=== PATIENT | female | born 2000 | race Two or more races ===

== ENCOUNTER 2024-08-18 09:26 | Outpatient (AMB) | payer MEDICAID, SELFPAY ==
[2024-08-18 09:34] VITALS: BP 127/77; PULSE 111; RESP 20; TEMP 36.3; O2SAT 98; BMI 32.1
--- NOTE | 2024-08-18 09:34 | OBCLNT_ITS ---
Vital Signs 08/18/24 09:34 Height 1.55 m Height Method Stated Weight 77.111 kg Weight Measurement Method Standing Scale BMI 32.1 BP 127/77 Blood Pressure Source Automatic Cuff Blood Pressure Location Right Upper Arm Position Sitting Respiration 20 Pulse 111 H Pulse Source Monitor Temp 97.4 F Temp Source Temporal Artery Scan Pulse Oximetry (%) 98 Oxygen Delivery Method Room Air Allergies/Home Meds Allergies & Medications Allergies NKA* Allergy (Uncoded 08/18/24 09:35) Medication Reconciliation vits no.126-ferrous fum 28 mg iron-folic acid 800 mcg tablet (Classic ) tab PO 08/18/24 [History Confirmed 08/18/24] Intake Visit Data Collection New Patient or Established: New Patient (never been to [facility]) Reason for Visit:: ob intaial Do You Feel Safe at Home: Yes Authorities Contacted: N/A PCP or OBGYN visit in last 3 months: No Are you currently on any form of Control: No Last menstrual period: 02/13/24 Pain Present Currently: No Smoking Status Smoking Status: Never smoker Questionnaires Covid-19 Vaccine Questionnaire Has patient been vacinated for Covid-19 Have you been vacinated for Covid-19: No PHQ-9 PHQ-2 Over the last 2 weeks, how often have you been bothered by any of the following problems? 1. Little interest or pleasure in doing things: not at all 2. Feeling down, depressed, or hopeless: not at all Total score: 0 Depression screen completed yes Social History Living Situation History Marital Status: Single Lives With: Significant Other Housing: Apartment Tobacco History Smoking Status: Never smoker Alcohol History Alcohol Intake: Never Domestic Abuse History Do You Feel Safe at Home: Yes Past Medical History Past Medical History Have you ever been diagnosed with any of the following: History of Present Illness HPI Narrative 24-year-old 1 para 0 for first visit to the [facility]. Last period February 13, 2024. This gives due date November 19, 2024. Patient has her dates. She is a transfer from [facility]. First visit was at 9 weeks. Patient comes with her records. Reports movement. Denies any complaints of labor. has been uneventful. Her last visit with maternal- medicine was June. Fetus was measuring in the 60th percentile. Normal anatomy. Patient is B+, antibody screen negative, RPR nonreactive, rubella immune, hepatitis B negative, HIV negative, hep C negative, GC and Chlamydia were negative. Positive U tox for THC. Patient denies history of chronic illnesses. Denies history of surgeries. No labor complaints. No discomforts of . Reports movement. OB Initial Visit OB Flowsheet OB Flowsheet Initial Weight: Not Recorded Date -?-?-?-?-?-?-?-?-?-?-?-?- EGA Weight Edema CTX Effacement BP Fundal ht Pres Dilation Effacement Station Visit Note Alb Glu FHR Mov 08/18/24 -?-?-?-?-?-?-?-?-?-?-?-?- 26w 5d 77.111 kg absent absent 127/77 27 unknown 24-year-old 1 para 0 for first OB appointment at [facility]. No complaints of labor. Reports movement. Labs reviewed with patient. Order third trimester labs. Follow-up OB sono for growth at 32 weeks. Discussed labor. Continue vitamins and iron. Increase fluids. I reviewed diet with patient and regular activity. RTC 3 week 136 ac tive Menstrual History Menstrual reliability: unknown Flow: heavy Menstrual regularity: irregular Monthly: No Age at menarche: 15 On control pills at conception: No Date of positive home test: 04/14/24 Associated symptoms (LMP): Reports amenorrhea OB History : 1 Para: 0 Hx # Pregnancies: 0 Hx Total # of Abortions (Spontaneous & Elective): 0 # of Living Children: 0 Infection History & Risk Evaluation History of STDs: none HIV risk evaluation: low risk Hepatitis B risk evaluation: low risk Patient or partner has history of Genital Herpes: No Varicella/chicken pox status: immunized Genetic Screening & History Genetic Screening/Teratology Counseling - Includes patient, baby's father, or anyone in either family with: 1. Patient's age 35 years or older as of estimated date of delivery: No 2. Thalassemia (Bahamian, Amharic, Mediterranean, or Background); MCV less than 80: No 3. Neural Tube Defect (Meningomyelocele, Spina Bifida, or Anencephaly): No 4. Congenital Heart Defect: No 5. Down Syndrome: No 6. Elder-Sachs (Ashkenazi Muslim, Cajun, Beninese Sri Lankan): No 7. Dee Dee Disease (Ashkenazi Muslim): No 8. Familial Dysautonomia (Ashkenazi Muslim): No 9. Sickle Cell Disease or Trait (): No 10. Hemophilia or other blood disorders: No 11. Muscular Dystrophy: No 12. Cystic Fibrosis: No 13. [place]'s Chorea: No 14. Mental Retardation/Autism: No 15. Other inherited genetic or chromosomal disorder: No 16. Maternal Metabolic Disorder (EG,TYPE 1 Diabetes, PKU): No 17. Patient or baby's father had a child with defects not listed above: No 18. Recurrent loss or a stillbirth: No 19. Medications (including supplements, vitamins, herbs or otc drugs)/illicit/recreational drugs/alcohol since last menstrual period: No 20. Any other: No Infection History 1. Live with someone with TB or exposed to TB: No 2. Rash or viral illness since last menstrual period: No 3. Hepatitis B,C: No Other (see comments) Source: [employer] Review of Systems Review of Systems Systems Reviewed: All systems reviewed, normal except as documented Genitourinary Genitourinary: Reports amenorrhea Exam Narrative Physical exam: fH: 27, fht:131 General Limitations: no limitations General Appearance: alert, in no apparent distress, comfortable, cooperative, healthy appearing, well developed and well groomed Chest Chest inspection: Present normal inspection and symmetric chest wall rise Resp Respiratory exam: Present normal lung sounds bilaterally Card Cardiovascular exam: Present regular rate, normal rhythm and normal heart sounds Abdominal Abdominal exam: Present soft and normal bowel sounds Psych Psychiatric exam: Present normal affect and normal mood Assessment & Plan Diagnosis / Problem List (1) Encounter for supervision of normal first , second trimester: Status: Acute Plan Continue vitamins. Order third trimester labs. Follow-up growth sono at 32 weeks. Discussed labor precautions with patient. Increase fluids and rest. Discussed walking 40 minutes a day. Decrease carbohydrates in diet. Increase proteins. Return in 3 weeks for OB check Additional Plan Follow Up: 3 Weeks (rtc 3 week OBC) Office Procedures OB Clinic LOC & Office Proc's Nursing/Assessment Patient Status: Initial/New Patient OB Clinic Nursing Assessment: Medication Reconciliation, Update PMH in EMR and Vital Signs OB Clinic Coordination of Care: Complex Care and Chronic Disease 1-5, Education Complex Pt/Fam and Staff clarify orders New Patient Charge New Patient Point Assignment: [id number] New Patient Point Charge: HUMAN RESOURCES MANAGER Level 3 ([id number])
== END 2024-08-18 09:56 | disposition home or self-care (01) ==
LOC: HODSOBC 09:26
PROVIDERS: PCP Advanced Practice Midwife; Referring Provider Advanced Practice Midwife; Supervising Provider Advanced Practice Midwife; Visit Provider Advanced Practice Midwife
DX: Z34.02 Encounter for supervision of normal first pregnancy, second trimester (principal); Z3A.26 26 weeks gestation of pregnancy
CPT/HCPCS: 99203; G0463

== ENCOUNTER 2024-09-21 09:04 | Outpatient (AMB) | payer MEDICAID, SELFPAY ==
[2024-09-21 09:25] VITALS: BP 118/75; PULSE 22; RESP 104; TEMP 36.1; O2SAT 98; BMI 32.3
--- NOTE | 2024-09-21 09:25 | AMB.OBVISIT ---
Vital Signs 09/21/24 09:25 Height 1.55 m Height Method Stated Weight 77.734 kg Weight Measurement Method Standing Scale BMI 32.3 BP 118/75 Blood Pressure Source Automatic Cuff Blood Pressure Location Left Upper Arm Position Sitting Respiration 104 H Pulse 22 L Pulse Source Monitor Temp 97 F Temp Source Oral Pulse Oximetry (%) 98 Oxygen Delivery Method Room Air Allergies/Home Meds Allergies & Medications Allergies NKA* Allergy (Uncoded 09/21/24 09:26) Medication Reconciliation vits no.126-ferrous fum 28 mg iron-folic acid 800 mcg tablet (Classic ) tab PO 08/18/24 [History Confirmed 09/21/24] vitamin-ferrous fumarate 28 mg iron-folic acid 800 mcg tablet ( Vitamins with Minerals) 1 tab PO QDAY 30 days #30 tabs 09/21/24 [Rx] Intake Visit Data Collection New Patient or Established: Established Patient (seen at [facility] within 3 years) Reason for Visit:: CARE Pond Worker Required: No Do You Feel Safe at Home: Yes Authorities Contacted: N/A PCP or OBGYN visit in last 3 months: Yes Hx Now: Yes Are you currently on any form of Control: No Pain Present Currently: No Pain Scale Used: Doyle-Payne/Numerical Pain scale:: 0 Smoking Status Smoking Status: Never smoker Questionnaires Covid-19 Vaccine Questionnaire Has patient been vacinated for Covid-19 Have you been vacinated for Covid-19: Yes PHQ-9 PHQ-2 Over the last 2 weeks, how often have you been bothered by any of the following problems? 1. Little interest or pleasure in doing things: not at all 2. Feeling down, depressed, or hopeless: not at all Total score: 0 PHQ-9 3. Trouble falling or staying asleep, or sleeping too much: Not at all 4. Feeling tired or having little energy: Not at all 5. Poor appetite or overeating: Not at all 6. Feeling bad about yourself - or that you are a failure or have let yourself or your family down: Not at all 7. Trouble concentrating on things, such as reading the newspaper or watching television: Not at all 8. Moving or speaking so slowly that other people could have noticed? - Or the opposite - being so fidgety or restless that you have been moving around a lot more than usual: not at all 9. Thoughts that you would be better off or of hurting yourself in some way: Not at all Total score: 0 Source: Developed by Drs. Hardik Serrano, Ramila Hernandez, Hoang Palmer and colleagues, with an educational aaron from [employer]. Depression screen completed yes Social History Living Situation History Lives With: Significant Other Housing: Apartment Tobacco History Smoking Status: Never smoker Alcohol History Alcohol Intake: Never Domestic Abuse History Do You Feel Safe at Home: Yes Care OB Visit Log OB Flowsheet Initial Weight: Not Recorded Date <del>?</del> EGA Weight BP Alb Glu CTX Pres Fundal ht FHR Mov Dilation Station Effacement Hx Notes Visit Note 08/18/24 <del>?</del> 26w 5d 77.111 kg 127/77 absent unknown 27 136 active 24-year-old 1 para 0 for first OB appointment at [facility] OB clinic. No complaints of labor. Reports movement. Labs reviewed with patient. Order third trimester labs. Follow-up OB sono for growth at 32 weeks. Discussed labor. Continue vitamins and iron. Increase fluids. I reviewed diet with patient and regular activity. RTC 3 week 09/21/24 <del>?</del> 31w 4d 77.734 kg 118/75 absent cephalic 30 147 active fetus active, no c/o vag bleeding,leaking or PTL signs TDAP today, refill pNV, discuss increase protien, small meals, increase fluid, PTL precaution, rtc 2 week TONYA Calculator Estimated Delivery Date Method Current WG Current Estimate 11/19/24 Ultrasound #1 31w 4d Other Estimates 11/19/24 LMP (Certain) 31w 4d Office Procedures OB Clinic LOC & Office Proc's Nursing/Assessment Patient Status: Established Patient OB Clinic Nursing Assessment: Medication Reconciliation, Update PMH in EMR and Vital Signs OB Clinic Coordination of Care: Complex Care and Chronic Disease 1-5, Consent,records obtained, informed consent, Education Simp Pt/Fam, Lab and Imaging orders, Results/Orders obtained and Staff clarify orders Special Needs: Heart tones Established Patient Charge Established Patient Point Assignment: 135 Injection/Vaccine Admin Admin 1st Vaccine: Yes Immunizations diphth,pertus(acell),tetanus 2.5 Lf unit-8 mcg-5 Lf/0.5mL IM syringe Performing Provider: Catarina Hobbs CNM Performing Location: [facility] ENGINEERING AND DEVELOPMENT DIRECTOR Clinic Administered by: Radha Yung MA on 09/21/24 16:17 Dose Route Admin Location Dispensed Lot Number Expiration Date [facility] Sales Order Processor 0.5 mL IM Right Deltoid 0.5 mL [id number] 10/09/26 [id number] [employer] VIS Given Date VIS Provided VIS Publication Date 09/21/24 Single Vaccine 24 Eligibility Eligibility Date Funding Source [facility] Assessment & Plan Diagnosis / Problem List (1) Encounter for care in third trimester of first : Status: Acute Plan refill PNV, TDAP today, discuss PTL precaution, comfort measure for nausea and feeling dizzy. increase fluid. RTC 2 week Additional Plan Follow Up: 2 Weeks (obc)
== END 2024-09-21 09:59 | disposition home or self-care (01) ==
LOC: HODSOBC 09:04
PROVIDERS: PCP Advanced Practice Midwife; Referring Provider Advanced Practice Midwife; Supervising Provider Advanced Practice Midwife; Visit Provider Advanced Practice Midwife
DX: Z34.03 Encounter for supervision of normal first pregnancy, third trimester (principal); Z3A.31 31 weeks gestation of pregnancy; Z23 Encounter for immunization
CPT/HCPCS: 90471; 90715; 99213; G0463

== ENCOUNTER 2024-10-06 10:35 | Outpatient (AMB) | payer MEDICAID, SELFPAY ==
--- NOTE | 2024-10-06 10:50 | OBCLNT_ITS ---
Vital Signs 10/06/24 10:56 Height 1.55 m Height Method Stated Weight 78.471 kg Weight Measurement Method Standing Scale BMI 32.6 BP 107/69 Blood Pressure Source Automatic Cuff Blood Pressure Location Right Upper Arm Position Sitting Respiration 17 Pulse 96 Pulse Source Monitor Temp 97.6 F Temp Source Temporal Artery Scan Pulse Oximetry (%) 98 Oxygen Delivery Method Room Air Allergies/Home Meds Allergies & Medications Allergies NKA* Allergy (Uncoded 10/06/24 10:57) Medication Reconciliation vits no.126-ferrous fum 28 mg iron-folic acid 800 mcg tablet (Classic ) tab PO 08/18/24 [History Confirmed 10/06/24] vitamin-ferrous fumarate 28 mg iron-folic acid 800 mcg tablet ( Vitamins with Minerals) 1 tab PO QDAY 30 days #30 tabs 09/21/24 [Rx Confirmed 10/06/24] Intake Visit Data Collection New Patient or Established: Established Patient (seen at [facility] within 3 years) Reason for Visit:: OBC Seen by Clinical Staff ONLY (RN/MA): No Occupational Health Nurse Supervisor Required: No Do You Feel Safe at Home: Yes Authorities Contacted: N/A PCP or OBGYN visit in last 3 months: Yes Date of Last PCP or OBGYN visit: 09/21/24 Hx Now: Yes Are you currently on any form of Control: No Pain Present Currently: No Pain Scale Used: Doyle-Payne/Numerical Pain scale:: 0 Smoking Status Smoking Status: Never smoker Questionnaires Covid-19 Vaccine Questionnaire Has patient been vacinated for Covid-19 Have you been vacinated for Covid-19: Yes PHQ-9 PHQ-2 Over the last 2 weeks, how often have you been bothered by any of the following problems? 1. Little interest or pleasure in doing things: not at all 2. Feeling down, depressed, or hopeless: not at all Total score: 0 PHQ-9 3. Trouble falling or staying asleep, or sleeping too much: Not at all 4. Feeling tired or having little energy: Not at all 5. Poor appetite or overeating: Not at all 6. Feeling bad about yourself - or that you are a failure or have let yourself or your family down: Not at all 7. Trouble concentrating on things, such as reading the newspaper or watching television: Not at all 8. Moving or speaking so slowly that other people could have noticed? - Or the opposite - being so fidgety or restless that you have been moving around a lot more than usual: not at all 9. Thoughts that you would be better off or of hurting yourself in some way: Not at all Total score: 0 If you checked off any problems, how difficult have these problems made it for you to do your work, take care of things at home, or get along with other people?: not difficult at all Source: Developed by Drs. Hardik Serrano, Ramila Hernandez, Hoang Palmer and colleagues, with an educational aaron from [employer]. Depression screen completed yes Social History Living Situation History Lives With: Significant Other Housing: Apartment Tobacco History Smoking Status: Never smoker Alcohol History Alcohol Intake: Never Domestic Abuse History Do You Feel Safe at Home: Yes Care OB Visit Log OB Flowsheet Initial Weight: Not Recorded Date -?-?-?-?-?-?-?-?-?-?-?-?- EGA Weight BP Alb Glu CTX Pres Fundal ht FHR Mov Dilation Station Effacement Hx Notes Visit Note 08/18/24 -?-?-?-?-?-?-?-?-?-?-?-?- 26w 5d 77.111 kg 127/77 absent unknown 27 136 active 24-year-old 1 para 0 for first OB appointment at [facility] OB clinic. No complaints of labor. Reports movement. Labs reviewed with patient. Order third trimester labs. Follow-up OB sono for growth at 32 weeks. Discussed labor. Continue vitamins and iron. Increase flui ds. I reviewed diet with patient and regular activity. RTC 3 week 09/21/24 -?-?-?-?-?-?-?-?-?-?-?-?- 31w 4d 77.734 kg 118/75 absent cephalic 30 147 active fetus active, no c/o vag bleeding,leaking or PTL signs TDAP today, refill pNV, discuss increase protien, small meals, increase fluid, PTL precaution, rtc 2 week 10/06/24 -?-?-?-?-?-?-?-?-?-?-?-?- 33w 5d 78.471 kg 107/69 absent cephalic 33 145 active fetus active per pt. denies PTL complaints, no PIH complaints discuss ptl precaution and FKC. continue PNV, hydrate. GBS nv TONYA Calculator Estimated Delivery Date Method Current WG Current Estimate 11/19/24 LMP (Certain) 33w 5d Other Estimates 11/19/24 Ultrasound #1 33w 5d 11/19/24 Ultrasound #2 33w 5d Office Procedures OB Clinic LOC & Office Proc's Nursing/Assessment Patient Status: Established Patient OB Clinic Nursing Assessment: Medication Reconciliation, Update PMH in EMR and Vital Signs OB Clinic Coordination of Care: Complex Care and Chronic Disease 1-5, Consent,records obtained, informed consent and Staff clarify orders Special Needs: Heart tones Established Patient Charge Established Patient Point Assignment: 100 Established Patient Point Charge: EP Level 3 (80-115) Assessment & Plan Diagnosis / Problem List (1) Encounter for care in third trimester of first : Status: Acute Plan discuss ptl precaution, fkc bid, increase fluid. discuss danger s/s. rtc 2 week OBC Additional Plan Follow Up: 2 Weeks (obc)
[2024-10-06 10:56] VITALS: BP 107/69; PULSE 96; RESP 17; TEMP 36.4; O2SAT 98; BMI 32.6
== END 2024-10-06 11:18 | disposition home or self-care (01) ==
LOC: HODSOBC 10:35
PROVIDERS: Supervising Provider Advanced Practice Midwife; Visit Provider Advanced Practice Midwife
DX: Z34.03 Encounter for supervision of normal first pregnancy, third trimester (principal); Z3A.33 33 weeks gestation of pregnancy
CPT/HCPCS: 99213; G0463

== ENCOUNTER 2024-10-11 19:17 | Observation (INO) | payer MEDICAID, SELFPAY ==
[2024-10-11] VITALS (28 sets, daily range): BP systolic 127; BP diastolic 60; PULSE 92–120; RESP 16–99; TEMP 37; O2SAT 98–100; BMI 32.8
[2024-10-11 20:45] LABS: Collection Type, Urine Clean Catch
[2024-10-11 20:54] LABS: Bilirubin,Urine Negative (Negative); Blood,Urine Negative (Negative); Clarity,Urine Clear (Clear/Hazy); Color,Urine Yellow (Lt Yel-Yel); Glucose, Urine Negative (Negative); Ketones,Urine Trace (Negative); Leukocyte Esterase,Urine Negative (Negative); Nitrite,Urine Negative (Negative); Protein,Urine Trace (Neg - Trace); RBC,Urine 3 /hpf (0-3); Specific Gravity,Urine 1.029 (1.001-1.035); Squamous Epithelial Cell,Urine 2 /hpf (0-5); Urobilinogen,Urine Negative mg/dL (0.0-1.0); WBC,Urine 3 /hpf (0-5)
[2024-10-11 21:43] LABS: FFN Specimen Descripton Clr Colrless Aqueous; Fetal Fibronectin Negative (Negative)
== END 2024-10-11 22:00 | disposition home or self-care (01) ==
PROVIDERS: Admitting Provider Obstetrics & Gynecology; Visit Provider Obstetrics & Gynecology
DX: O26.893 Other specified pregnancy related conditions, third trimester (principal); Z3A.34 34 weeks gestation of pregnancy; R10.9 Unspecified abdominal pain
CPT/HCPCS: 59025; 59899; 80307; 81001; 82731; 85025; 86703; 86762; 86780; 86850; 86900; 86901; 87340

== ENCOUNTER 2024-11-03 14:28 | Outpatient (AMB) | payer MEDICAID, SELFPAY ==
[2024-11-03 14:35] VITALS: BP 120/80; PULSE 90; RESP 17; TEMP 36.3; O2SAT 99
--- NOTE | 2024-11-03 14:35 | AMB.OBVISIT ---
Vital Signs 11/03/24 14:35 Weight 79.492 kg Weight Measurement Method Standing Scale BP 120/80 Blood Pressure Source Automatic Cuff Blood Pressure Location Right Upper Arm Position Sitting Respiration 17 Pulse 90 Pulse Source Monitor Temp 97.4 F Temp Source Temporal Artery Scan Pulse Oximetry (%) 99 Oxygen Delivery Method Room Air Allergies/Home Meds Allergies & Medications Allergies NKA* Allergy (Uncoded 11/03/24 14:36) Intake Visit Data Collection New Patient or Established: Established Patient (seen at [facility] within 3 years) Reason for Visit:: OBC Consent obtained for Telemed Visit: No Seen by Clinical Staff ONLY (RN/MA): No Assembling Motor Builder Required: No Do You Feel Safe at Home: Yes Authorities Contacted: N/A PCP or OBGYN visit in last 3 months: Yes Date of Last PCP or OBGYN visit: 10/11/24 Hx Now: Yes Are you currently on any form of Control: No Pain Present Currently: No Pain Scale Used: Doyle-Payne/Numerical Pain scale:: 0 Smoking Status Smoking Status: Never smoker Questionnaires Covid-19 Vaccine Questionnaire Has patient been vacinated for Covid-19 Have you been vacinated for Covid-19: No PHQ-9 PHQ-2 Over the last 2 weeks, how often have you been bothered by any of the following problems? 1. Little interest or pleasure in doing things: not at all PHQ-9 8. Moving or speaking so slowly that other people could have noticed? - Or the opposite - being so fidgety or restless that you have been moving around a lot more than usual: not at all Source: Developed by Drs. Hardik Serrano, Ramila Hernandez, Hoang Palmer and colleagues, with an educational aaron from [employer]. Social History Living Situation History Lives With: Significant Other Housing: Apartment Tobacco History Smoking Status: Never smoker Alcohol History Alcohol Intake: Never Domestic Abuse History Do You Feel Safe at Home: Yes Care OB Visit Log OB Flowsheet Initial Weight: Not Recorded Date <del>?</del> EGA Weight BP Alb Glu CTX Pres Fundal ht FHR Mov Dilation Station Effacement Hx Notes Visit Note 08/18/24 <del>?</del> 26w 5d 77.111 kg 127/77 absent unknown 27 136 active 24-year-old 1 para 0 for first OB appointment at [facility] OB clinic. No complaints of labor. Reports movement. Labs reviewed with patient. Order third trimester labs. Follow-up OB sono for growth at 32 weeks. Discussed labor. Continue vitamins and iron. Increase fluids. I reviewed diet with patient and regular activity. RTC 3 week 09/21/24 <del>?</del> 31w 4d 77.734 kg 118/75 absent cephalic 30 147 active fetus active, no c/o vag bleeding,leaking or PTL signs TDAP today, refill pNV, discuss increase protien, small meals, increase fluid, PTL precaution, rtc 2 week 10/06/24 <del>?</del> 33w 5d 78.471 kg 107/69 absent cephalic 33 145 active fetus active per pt. denies PTL complaints, no PIH complaints discuss ptl precaution and FKC. continue PNV, hydrate. GBS nv 11/03/24 <del>?</del> 37w 5d 79.492 kg 120/80 occasional cephalic 37 140 active Increased pressure. Occasional contraction. Denies leaking or bleeding. Fetus is very active per patient denies PIH signs and symptoms GBS today. Discussed labor precautions and kick count twice a day. Discussed ER precautions and signs symptoms PIH. Return in a week for OB check TONYA Calculator Estimated Delivery Date Method Current WG Current Estimate 11/19/24 LMP (Certain) 37w 5d Other Estimates 11/19/24 Ultrasound #1 37w 5d 11/19/24 Ultrasound #2 37w 5d Office Procedures OB Clinic LOC & Office Proc's Nursing/Assessment Patient Status: Established Patient OB Clinic Nursing Assessment: Medication Reconciliation, Update PMH in EMR and Vital Signs OB Clinic Coordination of Care: Complex Care and Chronic Disease 1-5, Consent,records obtained, informed consent, Education Simp Pt/Fam and Staff clarify orders Special Needs: Heart tones Established Patient Charge Established Patient Point Assignment: 115 Established Patient Point Charge: EP Level 3 (80-115) Assessment & Plan Diagnosis / Problem List (1) Encounter for care in third trimester of first : Status: Acute Plan GBS today. Discussed labor precautions. Discussed ER precautions and parameters. Discussed signs symptoms of preeclampsia. Increase fluids. Continue prenatals. Kick counts twice a day. Return in a week OB check Additional Plan Follow Up: 1 Week (obc)
== END 2024-11-03 15:05 | disposition home or self-care (01) ==
PROVIDERS: Supervising Provider Advanced Practice Midwife; Visit Provider Advanced Practice Midwife
DX: Z34.03 Encounter for supervision of normal first pregnancy, third trimester (principal); Z36.85 Encounter for antenatal screening for Streptococcus B; Z3A.37 37 weeks gestation of pregnancy
CPT/HCPCS: 99213; G0463

== ENCOUNTER 2024-11-06 17:55 | Observation (INO) | payer MEDICAID, SELFPAY ==
[2024-11-06] VITALS (15 sets, daily range): BP systolic 109; BP diastolic 72; PULSE 87–102; RESP 18–98; TEMP 37; O2SAT 97–99; BMI 32.0
--- NOTE | 2024-11-06 18:34 | XR_ITS ---
Examination: Complete OB ultrasound greater than 14 weeks Date and time of exam: November 06, 2024 1852 hours INDICATIONS: Pelvic contractions beginning today Findings: Viable intrauterine single fetus with single amniotic sac presentation cephalic Cardiac motion 133 BPM Placenta anterior grade 2. Umbilical cord insertion 3 vessel seen. Amniotic fluid index 9.5 cm. spine posterior. Cervix 3.5 cm closed Right ovary 2.8 cm arterial flow Obscured by bowel gas. Composite estimated gestational age based on BPD, head circumference, abdominal circumference, femur length is 36 weeks 6 days Estimated weight 3183 g. Survey of intracranial anatomy, spinal anatomy, abdominal anatomy, four-chamber heart performed with no abnormalities identified. Impression: Viable intrauterine gestation cephalic presentation.
== END 2024-11-06 19:35 | disposition home or self-care (01) ==
PROVIDERS: Admitting Provider Advanced Practice Midwife; Visit Provider Advanced Practice Midwife
DX: O47.1 False labor at or after 37 completed weeks of gestation (principal); Z3A.36 36 weeks gestation of pregnancy
CPT/HCPCS: 59025; 59899; 76805

== ENCOUNTER 2024-11-11 10:59 | Outpatient (AMB) | payer MEDICAID, SELFPAY ==
[2024-11-11 11:10] VITALS: BP 118/77; PULSE 91; RESP 17; TEMP 36.8; O2SAT 98; BMI 34.5
--- NOTE | 2024-11-11 11:10 | AMB.OBVISIT ---
Vital Signs 11/11/24 11:10 Height 1.52 m Height Method Measured Weight 80.286 kg Weight Measurement Method Standing Scale BMI 34.5 BP 118/77 Blood Pressure Source Automatic Cuff Blood Pressure Location Right Upper Arm Position Sitting Respiration 17 Pulse 91 Pulse Source Monitor Temp 98.2 F Temp Source Temporal Artery Scan Pulse Oximetry (%) 98 Oxygen Delivery Method Room Air Allergies/Home Meds Allergies & Medications Allergies NKA* Allergy (Uncoded 11/11/24 11:10) Medication Reconciliation vitamin-ferrous fumarate 28 mg iron-folic acid 800 mcg tablet ( Vitamins with Minerals) 1 tab PO QDAY 30 days #30 tabs 09/21/24 [Rx Confirmed 11/11/24] Intake Visit Data Collection New Patient or Established: Established Patient (seen at [facility] within 3 years) Reason for Visit:: OBC Consent obtained for Telemed Visit: No Seen by Clinical Staff ONLY (RN/MA): No Freight Tallier Required: No Do You Feel Safe at Home: Yes Authorities Contacted: N/A PCP or OBGYN visit in last 3 months: Yes Date of Last PCP or OBGYN visit: 11/06/24 Hx Now: Yes Are you currently on any form of Control: No Pain Present Currently: No Pain Scale Used: Doyle-Payne/Numerical Pain scale:: 0 Smoking Status Smoking Status: Never smoker Questionnaires Covid-19 Vaccine Questionnaire Has patient been vacinated for Covid-19 Have you been vacinated for Covid-19: Yes PHQ-9 PHQ-2 Over the last 2 weeks, how often have you been bothered by any of the following problems? 1. Little interest or pleasure in doing things: not at all PHQ-9 8. Moving or speaking so slowly that other people could have noticed? - Or the opposite - being so fidgety or restless that you have been moving around a lot more than usual: not at all Source: Developed by Drs. Hardik Serrano, Ramila Hernandez, Hoang Palmer and colleagues, with an educational aaron from [employer]. Social History Living Situation History Lives With: Significant Other Housing: Apartment Tobacco History Smoking Status: Never smoker Alcohol History Alcohol Intake: Never Domestic Abuse History Do You Feel Safe at Home: Yes Care OB Visit Log OB Flowsheet Initial Weight: Not Recorded Date <del>?</del> EGA Weight BP Alb Glu CTX Pres Fundal ht FHR Mov Dilation Station Effacement Hx Notes Visit Note 08/18/24 <del>?</del> 26w 5d 77.111 kg 127/77 absent unknown 27 136 active 24-year-old 1 para 0 for first OB appointment at [facility] OB clinic. No complaints of labor. Reports movement. Labs reviewed with patient. Order third trimester labs. Follow-up OB sono for growth at 32 weeks. Discussed labor. Continue vitamins and iron. Increase fluids. I reviewed diet with patient and regular activity. RTC 3 week 09/21/24 <del>?</del> 31w 4d 77.734 kg 118/75 absent cephalic 30 147 active fetus active, no c/o vag bleeding,leaking or PTL signs TDAP today, refill pNV, discuss increase protien, small meals, increase fluid, PTL precaution, rtc 2 week 10/06/24 <del>?</del> 33w 5d 78.471 kg 107/69 absent cephalic 33 145 active fetus active per pt. denies PTL complaints, no PIH complaints discuss ptl precaution and FKC. continue PNV, hydrate. GBS nv 11/03/24 <del>?</del> 37w 5d 79.492 kg 120/80 occasional cephalic 37 140 active Increased pressure. Occasional contraction. Denies leaking or bleeding. Fetus is very active per patient denies PIH signs and symptoms GBS today. Discussed labor precautions and kick count twice a day. Discussed ER precautions and signs symptoms PIH. Return in a week for OB check 11/11/24 <del>?</del> 38w 6d 80.286 kg 118/77 occasional cephalic 38 145 active increased pressure and UC, denies leaking or bleeding, fetus active Discussed diet and weight gain. I discussed comfort measures for early labor and danger signs and symptoms. Continue kick count. And ER precautions discussed return in a week for OB check TONYA Calculator Estimated Delivery Date Method Current WG Current Estimate 11/19/24 LMP (Certain) 38w 6d Other Estimates 11/19/24 Ultrasound #1 38w 6d 11/19/24 Ultrasound #2 38w 6d Notes Visit Date: 11/11/24 Last Updated by: Catarina Hobbs CNM 24 yo . LMP 02/13/24. EDC 11/19/24. Sono: 07/13/24: 21w4. EDC 11/19/24. B+,abs-, rpr;;nr, rub imm, HBSAG-,HIV-, HC-. GC/CT-, UT-, 1 hr gtt: wnl. GBS-, Nipt/carrier screen- Office Procedures OB Clinic LOC & Office Proc's Nursing/Assessment Patient Status: Established Patient OB Clinic Nursing Assessment: Medication Reconciliation, Update PMH in EMR and Vital Signs OB Clinic Coordination of Care: Complex Care and Chronic Disease 1-5, Consent,records obtained, informed consent and Education Simp Pt/Fam Special Needs: Heart tones Established Patient Charge Established Patient Point Assignment: 105 Established Patient Point Charge: EP Level 3 (80-115) Assessment & Plan Diagnosis / Problem List (1) Encounter for care in third trimester of first : Status: Acute Plan Discussed labor precautions and ER precautions. Discussed danger signs and symptoms and parameters. Increase fluids. Continue kick count twice a day. Return in a week OB check Additional Plan Follow Up: 1 Week (obc)
== END 2024-11-11 11:36 | disposition home or self-care (01) ==
LOC: HODSOBC 10:59
PROVIDERS: PCP Advanced Practice Midwife; Referring Provider Advanced Practice Midwife; Supervising Provider Advanced Practice Midwife; Visit Provider Advanced Practice Midwife
DX: Z34.03 Encounter for supervision of normal first pregnancy, third trimester (principal); Z3A.38 38 weeks gestation of pregnancy
CPT/HCPCS: 99213; G0463

== ENCOUNTER 2024-11-12 10:24 | Emergency (ER) | payer MEDICAID, SELFPAY ==
[2024-11-12 10:42] VITALS: BP 116/75; PULSE 88; RESP 18; TEMP 36.7; O2SAT 99; BMI 33.4
--- NOTE | 2024-11-12 10:52 | XR_ITS ---
Examination: Abdomen sonogram, Limited Date and time of exam: November 12, 2024 1123 hours INDICATIONS: Right upper abdominal pain today Technique: Real-time manzano scale transabdominal sonographic images of the upper abdomen obtained. Findings: Normal gallbladder. Normal common bile duct 0.2 cm Pancreatic head 2.0 cm Liver 15.2 cm fatty infiltration Normal hepatopedal portal venous flow Patent IVC IMPRESSION: Normal gallbladder
--- NOTE | 2024-11-12 10:53 | PD.EDRME ---
Rapid Medical Screening Exam [facility] Arrival date/time: 11/12/24 10:24 24-year-old female with no known medical history presents to the emergency room with a chief complaint of itchiness to her upper extremities face abdomen x 1 day. Patient states she called her [employer]IV[employer] INTERN and was sent to the emergency room to rule out cholecystitis as this could be one of the symptoms. I have greeted and performed a focused initial assessment of this patient. A comprehensive ED assessment and evaluation of the patient, analysis of all test results, and completion of the medical decision making process will be conducted by additional ED providers. Chief Complaint: Skin/Abscess/Foreign Body Time Seen by Provider: 11/12/24 10:42 Vital signs: Vital Signs Temperature 98.1 F 11/12/24 10:42 Pulse Rate 88 11/12/24 10:42 Respiratory Rate 18 11/12/24 10:42 Blood Pressure 116/75 11/12/24 10:42 Pulse Oximetry (%) 99 11/12/24 10:42 Oxygen Delivery Method Room Air 11/12/24 10:42 Vital signs reviewed by provider: Yes
[2024-11-12 11:24] LABS: Basophils # (Auto) 0.0 Thou/mm3 (0.0-0.2); Basophils % (Auto) 1 % (0-2.5); Eosinophils # (Auto) 0.1 Thou/mm3 (0.0-0.5); Eosinophils % (Auto) 1 % (0-10); Hematocrit 34.0 % (36.0-46.0); Hemoglobin 11.4 g/dL (12.0-16.0); Immature Granulocytes Auto 0.03 Thou/mm3 (0.00-0.00); Lymphocytes # (Auto) 1.8 Thou/mm3 (1.0-4.8); Lymphocytes % (Auto) 33 % (10-50); Mean Corpuscular HGB Conc 33.5 g/dl (31.0-37.0); Mean Corpuscular Hemoglobin 26.8 pg (25.0-35.0); Mean Corpuscular Volume 80 fL (80-100); Monocytes # (Auto) 0.3 Thou/mm3 (0.0-0.8); Monocytes % (Auto) 5 % (0-12); Neutrophils # (Auto) 3.3 Thou/mm3 (1.8-7.7); Neutrophils % (Auto) 59 % (37-80); Nucleated Red Blood Cell # 0.00 Thou/mm3 (0.00-0.00); Nucleated Red Blood Cell % 0 /100 WBC (0); Platelet Count 144 Thou/mm3 (140-440); RDW Standard Deviation 41.1 fL (36.4-46.3); Red Blood Count 4.26 Miln/mm3 (4.00-5.20); White Blood Count 5.5 Thou/mm3 (3.6-11.0)
[2024-11-12 11:37] LABS: Alanine Aminotransferase 10 U/L (10-49); Albumin, Serum 4.0 gm/dL (3.5-5.0); Albumin/Globulin Ratio 1.8 (1.2-2.2); Alkaline Phosphatase 199 U/L (46-116); Anion Gap 9 (7-16); Aspartate Amino Transferase 16 U/L (0-34); BUN/Creatinine Ratio 10 Ratio (12-20); Bilirubin,Total 0.4 mg/dL (0.3-1.2); Blood Urea Nitrogen 7 mg/dL (9-23); Calcium 9.7 mg/dL (8.3-10.6); Calcium (Corrected) 9.7 mg/dL (8.5-10.1); Carbon Dioxide 22.8 mMol/L (20.0-31.0); Chloride 108 mMol/L (98-107); Creatinine (Component) 0.7 mg/dL (0.6-1.3); Estimated Creatinine Clearance 118.9 mL/min (>60); Globulin 2.2 gm/dL (2.3-3.5); Glucose 74 mg/dL (74-106); Lipase 30 U/L (12-53); Osmolality,Calculated 276 (275-295); Potassium 3.6 mMol/L (3.4-5.1); Sodium 140 mMol/L (136-145); Total Protein 6.2 gm/dL (5.7-8.2); eGFR > 60 See Note
--- NOTE | 2024-11-12 12:31 | EDNOTE_ITS ---
ED Skin Abcess FB-RME/HPI General Chief complaint: Skin/Abscess/Foreign Body Stated complaint: Rash, itchy since last night, 39 weeks OB Time Seen by Provider: 11/12/24 10:42 Source: patient Arrival date/time: 11/12/24 10:24 24-year-old female with no known medical history presents to the emergency room with a chief complaint of itchiness to her upper extremities face abdomen x 1 day. 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 Mode of arrival: ambulatory Limitations: no limitations RME / HPI RME / HPI narrative: 11/12/24 10:24 24-year-old female with no known medical history presents to the emergency room with a chief complaint of itchiness to her upper extremities face abdomen x 1 day. 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 I have greeted and performed a focused initial assessment of this patient. A comprehensive ED assessment and evaluation of the patient, analysis of all test results, and completion of the medical decision making process will be conducted by additional ED providers. Related Data Previous Rx's ?Medication ?Instructions ?Recorded vitamin-ferrous fumarate 1 tab PO QDAY 30 day s #30 tabs 09/21/24 28 mg iron-folic acid 800 mcg tablet ( Vitamins with Minerals) Allergies Allergy/AdvReac Type Severity Reaction Status Date / Time NKA* Allergy Uncoded 11/12/24 10:28 Review of Systems Review of Systems Systems Reviewed: All systems reviewed, normal except as documented Constitutional Constitutional: Reports system reviewed and no additional complaints, except as documented, Denies fatigue, Denies fever(s), Denies headache(s) and Denies weakness Eyes Eyes: Reports system reviewed and no additional complaints, except as documented , Denies blurry vision and Denies change in vision ENT Ears, Nose, Mouth, and Throat: Reports system reviewed and no additional complaints, except as documented, Denies otalgia, Denies headache(s), Denies nasal congestion, Denies throat swelling and Denies vertigo Cardiovascular Cardiovascular: Reports system reviewed and no additional complaints, except as documented, Denies chest pain, Denies dyspnea and Denies dyspnea on exertion Respiratory Respiratory: Reports system reviewed and no additional complaints, except as documented, Denies chest congestion, Denies cough, Denies dyspnea, Denies dyspnea on exertion and Denies wheezing Gastrointestinal Gastrointestinal: Reports system reviewed and no additional complaints, except as documented, Denies abdominal pain, Denies cramping, Denies nausea and Denies vomiting Genitourinary Genitourinary: Reports system reviewed and no additional complaints, except as documented Musculoskeletal Musculoskeletal: Reports system reviewed and no additional complaints, except as documented and Denies back pain Integumentary/Breasts Skin/Breast: Reports system reviewed and no additional complaints, except as documented and Denies wounds Neurologic Neurologic: Reports system reviewed and no additional complaints, except as documented, Denies confusion, Denies headache(s), Denies lack of coordination, Denies vertigo and Denies weakness Psychiatric Psychiatric: Reports system reviewed and no additional complaints, except as documented, Denies anxiety, Denies confusion, Denies depression, Denies paranoia, Denies suicidal ideation and Denies tactile hallucinations Endocrine Endocrine: Reports system reviewed and no additional complaints, except as documented and Denies fatigue Hematologic/Lymphatic Hematologic/Lymphatic: Reports system reviewed and no additional complaints, except as documented and Denies lymphadenopathy Allergic/Immunologic Allergic/Immunologic: Reports system reviewed and no additional complaints, except as documented, Denies throat swelling, Denies urticaria and Denies wheezing Past Medical History Surgical History SURGICAL: Negative Section Social History SMOKING STATUS: Never smoker ED Exam General Limitations: Present no limitations General appearance: Present alert and in no apparent distress Head Head exam: Present atraumatic Eye Eye exam: Present normal appearance, PERRL and EOMI ENT ENT exam: Present normal exam, normal oropharynx and mucous membranes moist Neck Neck exam: Present normal inspection, full ROM and trachea midline Chest Chest inspection: Present normal inspection and symmetric chest wall rise Respiratory Respiratory exam: Present normal lung sounds bilaterally Cardiovascular Cardiovascular exam: Present regular rate, normal rhythm and normal heart sounds Abdominal Exam Abdominal exam: Present soft and normal bowel sounds; Absent tenderness or Edge's sign Abdominal tenderness: Absent RUQ Extremities Exam Extremities exam: Present normal inspection and full ROM Back Exam Back exam: Present normal inspection and full ROM Neurological Exam Neurological exam: Present alert, oriented X3 and CN II-XII intact Psychiatric Psychiatric exam: Present normal affect and normal mood Skin Skin exam: Present warm, dry, intact and normal color Course Quality Measures none Orders Category Date Time Status US gall bladder Stat Exams 11/12/24 10:52 Completed CBC Stat Lab 11/12/24 11:09 Completed CMP [Comprehensive Metabolic Panel] Stat Lab 11/12/24 11:09 Completed Lipase Stat Lab 11/12/24 11:09 Completed Vital Signs Vital signs: Vital Signs Temperature 98.1 F 11/12/24 10:42 Pulse Rate 88 11/12/24 10:42 Respiratory Rate 18 11/12/24 10:42 Blood Pressure 116/75 11/12/24 10:42 Pulse Oximetry (%) 99 11/12/24 10:42 Oxygen Delivery Method Room Air 11/12/24 10:42 O2 saturation 99% within normal limits Skin / Abscess / Foreign Body MDM Narrative MDM Narrative:: 24-year-old female with no known medical history presents to the emergency room with a chief complaint of itchiness to her upper extremities face abdomen x 1 day. 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 Patient is hemodynamically stable and in no apparent distress Physical examination shows a soft nontender abdomen. There is no tenderness to her right upper quadrant there is no Edge sign. An ultrasound of the gallbladder was completed and was negative for any acute findings. CBC CMP bilirubin were within normal limits Patient was discharged and educated to follow-up with primary care provider in the next 24 to 48 hours and return to the emergency room for any evidence of worsening signs or symptoms Patient data External records reviewed:: [facility] previous records Clinical information provided by:: patient Social determinants that could affect healthcare access:: none Patient has the following chronic illnesses:: No chronic illness How is presenting disease/condition affected by chronic disease/condition?: no chronic disease Evaluation data The following diagnostics were reviewed and interpreted by me:: lab results and radiology exam(s) Lab and/or radiology exams considered but not ordered:: Labs and radiology exams considered and ordered Interpretation Summary: Ultrasound gallbladder-Findings: Normal gallbladder. Normal common bile duct 0.2 cm Pancreatic head 2.0 cm Liver 15.2 cm fatty infiltration Normal hepatopedal portal venous flow Patent IVC IMPRESSION: Normal gallbladder Medications / Prescriptions Medications or Prescriptions considered but not ordered:: No medication given Medication administrations:: No medication given Consultations Consultation(s) initiated? (list below): No Diagnosis Skin/Abscess Differential Diagnosis: other (Cholecystitis/cholelithiasis/cholestatic pruritus/severe itchiness) Most likely diagnosis given after review of the tests above:: Severe itchiness Admission Indicated Admission indicated?: not indicated Admission Request Was there a request for admission?: No Disposition Plan Disposition Plan: Discharge Discharge Attestation Discharge Attestation: The patient and all family members were given an opportunity to ask questions and understood the discharge instructions. Discharge instructions specifically effects, indications for sooner follow up or return to the emergency department, and the expected course of current diagnosis. Patient condition: Stable Discharge Plan Plan Patient Disposition: HOME (Self Care) Discharge Disposition comment: Stable Prescriptions/Referrals Prescriptions/Med Rec: No Action vit-iron fum-folic ac [ Vitamin with Minerals] 28 mg iron- 800 mcg tablet 1 tab PO QDAY 30 Days Qty: 30 3RF Referrals: No Primary/Family,Physician [Primary Care Provider] - In 1 week Problem List Clinical Impression: Severe itching Patient/Caregiver Discharge Instructions Additional Instructions: Please follow-up with your primary care provider in the next 24 to 48 hours Your ultrasound of your gallbladder was within normal limits For any evidence of worsening signs or symptoms return to the emergency room immediately Print Language: Indonesian Stand Alone Forms: Macie Award Info., Patient Portal Info Letter MIKIE/LEÓN Supervising Physician MIKIE/LEÓN Supervising Physician: Dr. Ware
== END 2024-11-12 12:47 | disposition home or self-care (01) ==
PROVIDERS: Emergency Provider Nurse Practitioner Family
DX: O26.893 Other specified pregnancy related conditions, third trimester (principal); L29.9 Pruritus, unspecified; Z3A.39 39 weeks gestation of pregnancy
CPT/HCPCS: 36415; 76705; 80053; 83690; 85025; 99283

== ENCOUNTER 2024-11-17 15:32 | Outpatient (AMB) | payer MEDICAID, SELFPAY ==
[2024-11-17 15:56] VITALS: BP 122/80; PULSE 87; RESP 17; TEMP 36.7; O2SAT 98; BMI 33.3
--- NOTE | 2024-11-17 15:56 | OBCLNT_ITS ---
Vital Signs 11/17/24 15:56 Height 1.55 m Height Method Stated Weight 79.889 kg Weight Measurement Method Standing Scale BMI 33.3 BP 122/80 Blood Pressure Source Automatic Cuff Blood Pressure Location Right Upper Arm Position Sitting Respiration 17 Pulse 87 Pulse Source Monitor Temp 98.0 F Temp Source Temporal Artery Scan Pulse Oximetry (%) 98 Oxygen Delivery Method Room Air Allergies/Home Meds Allergies & Medications Allergies NKA* Allergy (Uncoded 11/17/24 15:57) Medication Reconciliation vitamin-ferrous fumarate 28 mg iron-folic acid 800 mcg tablet ( Vitamins with Minerals) 1 tab PO QDAY 30 days #30 tabs 09/21/24 [Rx Confirmed 11/17/24] Intake Visit Data Collection New Patient or Established: Established Patient (seen at [facility] within 3 years) Reason for Visit:: OBC Seen by Clinical Staff ONLY (RN/MA): No Hogshead Press Operator Required: No Do You Feel Safe at Home: Yes Authorities Contacted: N/A PCP or OBGYN visit in last 3 months: Yes Date of Last PCP or OBGYN visit: 11/12/24 Hx Now: Yes Are you currently on any form of Control: No Pain Present Currently: No Pain Scale Used: Doyle-Payne/Numerical Pain scale:: 0 Smoking Status Smoking Status: Never smoker Questionnaires Covid-19 Vaccine Questionnaire Has patient been vacinated for Covid-19 Have you been vacinated for Covid-19: No PHQ-9 PHQ-2 Over the last 2 weeks, how often have you been bothered by any of the following problems? 1. Little interest or pleasure in doing things: not at all 2. Feeling down, depressed, or hopeless: not at all Total score: 0 PHQ-9 3. Trouble falling or staying asleep, or sleeping too much: Not at all 4. Feeling tired or having little energy: Not at all 5. Poor appetite or overeating: Not at all 6. Feeling bad about yourself - or that you are a failure or have let yourself or your family down: Not at all 7. Trouble concentrating on things, such as reading the newspaper or watching television: Not at all 8. Moving or speaking so slowly that other people could have noticed? - Or the opposite - being so fidgety or restless that you have been moving around a lot more than usual: not at all 9. Thoughts that you would be better off or of hurting yourself in some way: Not at all Total score: 0 If you checked off any problems, how difficult have these problems made it for you to do your work, take care of things at home, or get along with other people?: not difficult at all Source: Developed by Drs. Hardik Serrano, Ramila Hernandez, Hoang Palmer and colleagues, with an educational aaron from [employer]. Depression screen completed yes Social History Living Situation History Marital Status: Lives With: Significant Other Housing: Apartment Tobacco History Smoking Status: Never smoker Second Hand Smoke Exposure: No Alcohol History Alcohol Intake: Never Domestic Abuse History Do You Feel Safe at Home: Yes Care OB Visit Log OB Flowsheet Initial Weight: Not Recorded Date -?-?-?-?-?-?-?-?-?-?-?-?- EGA Weight BP Alb Glu CTX Pres Fundal ht FHR Mov Dilation Station Ef facement Hx Notes Visit Note 08/18/24 -?-?-?-?-?-?-?-?-?-?-?-?- 26w 5d 77.111 kg 127/77 absent unknown 27 136 active 24-year-old 1 para 0 for first OB appointment at [facility] OB clinic. No complaints of labor. Reports movement. Labs reviewed with patient. Order third trimester labs. Follow-up OB sono for growth at 32 weeks. Discussed labor. Continue vitamins and iron. Increase fluids. I reviewed diet with patient and regular activity. RTC 3 week 09/21/24 -?-?-?-?-?-?-?-?-?-?-?-?- 31w 4d 77.734 kg 118/75 absent cephalic 30 147 active fetus active, no c/o vag bleeding,leaking or PTL signs TDAP today, refill pNV, discuss increase protien, small meals, increase fluid, PTL precaution, rtc 2 week 10/06/24 -?-?-?-?-?-?-?-?-?-?-?-?- 33w 5d 78.471 kg 107/69 absent cephalic 33 145 active fetus active per pt. denies PTL complaints, no PIH complaints discuss ptl precaution and FKC. continu e PNV, hydrate. GBS nv 11/03/24 -?-?-?-?-?-?-?-?-?-?-?-?- 37w 5d 79.492 kg 120/80 occasional cephalic 37 140 active Increased pressure. Occasional contraction. Denies leaking or bleeding. Fetus is very active per patient denies PIH signs and symptoms GBS today. Discussed labor precautions and kick count twice a day. Discussed ER precautions and signs symptoms PIH. Return in a week for OB check 11/11/24 -?-?-?-?-?-?-?-?-?-?-?-?- 38w 6d 80.286 kg 118/77 occasional cephalic 38 145 active increased pressure and UC, denies leaking or bleeding, fetus active Discussed diet and weight gain. I discussed comfort measures for early labor and danger signs and symptoms. Continue kick count. And ER precautions discussed return in a week for OB check 11/17/24 -?-?-?-?-?-?-?-?-?-?-?-?- 39w 5d 79.889 kg 122/80 occasional cephalic 39 145 active Patient reports that she thinks she has been leaking for 2 days. Reports good movement. Denies contractions. Denies bleeding Patient was sent to labor and delivery for labor eval rule out rupture membranes. I discussed the importance of pain attention and leaking fluid and going to the hospital instead of waiting room for contractions. I discussed labor precautions. kick counts twice a day. Increase fluids. Continue vitamins. Patient will be scheduled for week in case she does not deliver by TONYA Calculator Estimated Delivery Date Method Current WG Current Estimate 11/19/24 LMP (Certain) 39w 5d Other Estimates 11/19/24 Ultrasound #1 39w 5d 11/19/24 Ultrasound #2 39w 5d Notes Visit Date: 11/11/24 Last Updated by: Catarina Hobbs CNM 24 yo . LMP 02/13/24. EDC 11/19/24. Sono: 07/13/24: 21w4. EDC 11/19/24. B+,abs-, rpr;;nr, rub imm, HBSAG-,HIV-, HC-. GC/CT-, UT-, 1 hr gtt: wnl. GBS-, Nipt/carrier screen- Office Procedures OB Clinic LOC & Office Proc's Nursing/Assessment Patient Status: Established Patient OB Clinic Nursing Assessment: Medication Reconciliation, Update PMH in EMR and Vital Signs OB Clinic Coordination of Care: Complex Care and Chronic Disease 1-5, Consent,records obtained, informed consent, Education Simp Pt/Fam and Staff clarify orders Special Needs: Heart tones Established Patient Charge Established Patient Point Assignment: 115 Established Patient Point Charge: EP Level 3 (80-115) Assessment & Plan Diagnosis / Problem List (1) Encounter for care in third trimester of first : Status: Acute Plan Patient sent to labor and delivery for rule out rupture membranes x 2 days. I discussed the importance of monitoring leaking fluid and not waiting at home until contractions start. I then discussed labor precautions. Discussed kick count with patient. Increase fluids. Continue prenatals. Return in a week for OB check if she does not deliver the baby Additional Plan Follow Up: 1 Week (obc)
== END 2024-11-17 16:16 | disposition home or self-care (01) ==
LOC: HODSOBC 15:32
PROVIDERS: Supervising Provider Advanced Practice Midwife; Visit Provider Advanced Practice Midwife
DX: Z34.03 Encounter for supervision of normal first pregnancy, third trimester (principal); Z3A.39 39 weeks gestation of pregnancy
CPT/HCPCS: 99213; G0463

== ENCOUNTER 2024-11-24 18:45 | Inpatient (IN) | payer MEDICAID, SELFPAY ==
[2024-11-24] VITALS (59 sets, daily range): BP systolic 105–130; BP diastolic 53–69; PULSE 72–96; RESP 18–98; TEMP 36.9; O2SAT 98–100; BMI 33.8
[2024-11-24 19:31] LABS: ROM Kit Exp Date# 11152027; ROM Kit Lot # 58102387
[2024-11-24 19:32] LABS: ROM Swab Mixed By: FOUN; Rupture of Fetal Membranes Positive (Negative); Swb Mxed in Solvent 1 min? Yes
--- NOTE | 2024-11-24 20:22 | XR_ITS ---
Examination: age limited TECHNIQUE: Limited transabdominal sonographic images pelvis Date and time: November 24, 2024 2030 hours INDICATIONS: Unknown presentation and unknown weight, labor evaluation FINDINGS: Viable intrauterine gestation cephalic presentation spine maternal left Cardiac motion 135 bpm Estimated gestational age 39 weeks 2 days, estimated weight 3813 g IMPRESSION: Fibroids uterine gestation cephalic presentation
[2024-11-24 20:52] LABS: Basophils # (Auto) 0.1 Thou/mm3 (0.0-0.2); Basophils % (Auto) 1 % (0-2.5); Eosinophils # (Auto) 0.1 Thou/mm3 (0.0-0.5); Eosinophils % (Auto) 1 % (0-10); Hematocrit 36.0 % (36.0-46.0); Hemoglobin 11.9 g/dL (12.0-16.0); Immature Granulocytes Auto 0.03 Thou/mm3 (0.00-0.00); Lymphocytes # (Auto) 2.0 Thou/mm3 (1.0-4.8); Lymphocytes % (Auto) 28 % (10-50); Mean Corpuscular HGB Conc 33.1 g/dl (31.0-37.0); Mean Corpuscular Hemoglobin 27.2 pg (25.0-35.0); Mean Corpuscular Volume 82 fL (80-100); Monocytes # (Auto) 0.4 Thou/mm3 (0.0-0.8); Monocytes % (Auto) 6 % (0-12); Neutrophils # (Auto) 4.6 Thou/mm3 (1.8-7.7); Neutrophils % (Auto) 64 % (37-80); Nucleated Red Blood Cell # 0.00 Thou/mm3 (0.00-0.00); Nucleated Red Blood Cell % 0 /100 WBC (0); Platelet Count 133 Thou/mm3 (140-440); RDW Standard Deviation 45.1 fL (36.4-46.3); Red Blood Count 4.37 Miln/mm3 (4.00-5.20); White Blood Count 7.2 Thou/mm3 (3.6-11.0)
[2024-11-24] MEDS: OXYTOCIN in NS 30 units 30 UNIT/500 ML BAG IV (21:20)
[2024-11-24 21:25] LABS: Amphetamine/Metham Scrn,Ur OB Negative (Negative); Benzoylecgonine Screen, Ur OB Negative (Negative); Opiate Screen,Urine OB Negative (Negative); THC Screen,Urine OB Negative (Negative)
[2024-11-24 21:45] LABS: Syphilis Nonreactive (Nonreactive)
[2024-11-25] VITALS (183 sets, daily range): BP systolic 85–136; BP diastolic 50–93; PULSE 66–147; RESP 14–48; TEMP 36.1–37.9; O2SAT 92–100
[2024-11-25] MEDS: fentaNYL CIT INJ 50 mCg/ML AMP 2ML 100 MCG IM (02:04)
[2024-11-25] MEDS: Ampicillin Inj 2,000 MG in SODIUM CHLORIDE 0.9% (POP) 100 ML 200 MG IV (02:12)
[2024-11-25] MEDS: fentaNYL CIT INJ 50 mCg/ML AMP 2ML 100 MCG IVP (04:55)
[2024-11-25] MEDS: RINGERS LACTATED 1000 ML 1,000 ML 100 ML IV (05:02)
[2024-11-25] MEDS: Ampicillin Inj 1,000 MG in SODIUM CHLORIDE 0.9% (Popper) 50 ML 50 MG IV (06:11)
--- NOTE | 2024-11-25 07:08 | PC.NURSE ---
11/24/24 to 11/25/24 RN precepting Bronson Manzo RN, review and agree with labor progress assessment charting.
--- NOTE | 2024-11-25 08:03 | PD.LDHP ---
Documentation for date of: 11/25/24 OB Labor/Induct. HPI History of Present Illness Chief complaint: ROM early labor : 1 Para: 0 Term pregnancies: 0 pregnancies: 0 Living children: 0 History of Abortions: Spontaneous and Elective: 0 History of Vaginal deliveries: 0 History of sections: No History of : No Date of last menstrual period: 02/13/24 TONYA: 11/19/24 Gestational Age (weeks): 40 Gestational Age (days): 5 Gestational age based on last menstrual period: 40 Indication for induction: post dates History of present illness: This is a 24-year-old 1 para 0 admit to labor with complaints of leaking fluid since 2 in the afternoon. In early contractions. Patient is been followed at [facility] medical clinic. Her last period February 13, 2024. EDC 11/19/2024. Her first visit was 26 weeks. Patient denies social habits. Denies surgery. Denies chronic illness. Her has been uneventful. Patient is B+, antibody screen negative, RPR nonreactive, rubella, hepatitis B negative, hep C negative, HIV negative, GC and Chlamydia were negative. Patient had negative drug screen. UA was negative. 1 hour was normal. NIPT and carrier screens all negative. GBS is negative History of Present Dating criteria: LMP confirmed by 2nd trimester US Adequate Care: Yes Ultrasounds: normal mid trimester US Obstetrical complications: none Medical complications: none Labs Labs: Positive: Rubella Titre, Negative: RPR, Hepatitis B, HIV, Chlamydia, Gonorrhea, Herpes Type 1, Herpes Type 2 and Group Beta Strep and Unknown: Covid-19 Review of Systems Review of Systems Systems Reviewed: All systems reviewed, normal except as documented Past Medical History Surgical History SURGICAL: Negative Section Meds Home Medications and Allergies Allergies Allergy/AdvReac Type Severity Reaction Status Date / Time NKA* Allergy Uncoded 11/24/24 19:31 OB Exam Physical Exam Vital signs: Temp Pulse Resp BP Pulse Ox O2 Del Method 98.4 F 90 17 118/63 100 Room Air 11/25/24 05:45 11/25/24 07:35 11/25/24 05:45 11/25/24 07:35 11/25/24 08:02 11/25/24 05:45 Narrative: Alert and oriented. Normal heart rate and rhythm. Lungs clear no wheezes. Gravid abdomen. Gynecoid pelvis. Estimated weight 8 pounds. Vaginal examination was 60%, 1, -3. AmniSure was positive. Leaking clear fluid. heart rate was category 1 with accelerations and moderate variability and there were irregular mild contractions Detailed Labor and Delivery Exam Dilation (cm): 1 Effacement (%): 60 Cervix position: mid station: -3 Consistency: soft Presentation: Vertex Cervical ripeness score: 3 Membranes: ruptured Amniotic fluid: clear Baseline heart rate: 145 monitor accelerations: 15x15 monitor decelerations: None supervisor intermediates variability: Moderate (11-25) Contraction frequency (min): irreg Contraction duration (sec): 30 Tachysystole: No Contraction intensity: Mild OB Results Labs 11/24/24 20:20 Labs: Short CBC 11/24/24 Range/Units 20:20 WBC 7.2 (3.6-11.0) Thou/mm3 Hgb 11.9 L (12.0-16.0) g/dL Hct 36.0 (36.0-46.0) % Plt Count 133 L (140-440) Thou/mm3 OB Assessment & Plan Assessment and Plan (1) Normal labor and delivery: Status: Acute Additional Plan Induction method: per pitocin protocol Plan: augmentation, anticipate NVD, GBS prophylaxis tx and consult MD nathan
--- NOTE | 2024-11-25 09:56 | PD.LDPN ---
Documentation for date of: 11/25/24 OB Labor Progress Note Pain Control Pain control: tolerating well and epidural Comments: RN asked for IUPC and I was at the desk. Catarina had a hard time placing it this morning. Pelvic Exam Dilation (cm): 5 Effacement (%): 80 station: -1 Amniotic membrane status: Leaking Comments: IUPC placed Contractions Monitor mode: External Contraction frequency: irreg Contraction pattern: Coupling Contraction intensity: Mild Status status: Category ll Assessment and Plan Assessment: induction ongoing Plan OB labor note: continuous present management Comments: Amnioinfusion for variable decelerations
--- NOTE | 2024-11-25 10:27 | PD.LDPN ---
Documentation for date of: 11/25/24 OB Labor Progress Note Pelvic Exam Dilation (cm): 5 Effacement (%): 80 station: -1 Amniotic membrane status: Leaking Contractions Monitor mode: External Contraction frequency: irreg Contraction pattern: Coupling Contraction intensity: Mild Status status: Category ll Assessment and Plan Comments: Recurrent late decelerations with decreasing variability and no significant cervical change delivery Informed consent was obtained. The patient was made aware of the risks, complications, alternatives and benefits of the proposed procedure and she agrees.
--- NOTE | 2024-11-25 10:28 | ESDS_ITS ---
DS: Providers Provider Date of admission: 11/24/24 20:33 Primary care physician: Physician No Primary/Family Admitting Provider: Emma Frank MD (OB Clinic) Attending Provider on Admission: Catarina Hobbs CNM Attending Provider on DC: García Brady MD Discharging Provider: García Brady MD DS: Diagnosis Discharge Diagnosis (1) delivery delivered: Status: Acute (2) Injury of left uterine artery: Status: Acute (3) Uterine atony: Status: Acute (4) Blood transfusion during current hospitalization: Status: Acute Problem List Completed Was Problem List Reviewed/Reconciled?: Yes Summary/Hosp Course Brief History: This is a 24-year-old 1 para 0 admit to labor with complaints of leaking fluid since 2 in the afternoon. In early contractions. Patient is been followed at [facility] medical clinic. Her last period February 13, 2024. EDC 11/19/2024. Her first visit was 26 weeks. Patient denies social habits. Denies surgery. Denies chronic illness. Her has been uneventful. Patient is B+, antibody screen negative, RPR nonreactive, rubella, hepatitis B negative, hep C negative, HIV negative, GC and Chlamydia were negative. Patient had negative drug screen. UA was negative. 1 hour was normal. NIPT and carrier screens all negative. GBS is negative Peripartum Data Delivery Method: Low Transverse Procedures: Procedures Operation Date: 11/25/24 10:45 <No data on this case meets the specified criteria> 1: Gender: Female Disposition of : home Time Spent with Patient Time attestation: Total time spent providing and/or coordinating discharge services: Exam Vital Signs Temp Pulse Resp BP Pulse Ox O2 Del Method 98.4 F 71 17 113/62 100 Room Air 11/25/24 05:45 11/25/24 10:06 11/25/24 05:45 11/25/24 10:06 11/25/24 10:27 11/25/24 05:45 Discharge Plan Prescriptions/Referrals Prescriptions/Med Rec: No Action vit-iron fum-folic ac [ Vitamin with Minerals] 28 mg iron- 800 mcg tablet 1 tab PO QDAY 30 Days Qty: 30 3RF Referrals: No Primary/Family,Physician [Primary Care Provider] - Patient/Caregiver Discharge Instructions Education Materials: C Section Dc Print Language: [place] Planned Discharge Date 11/27/24
--- NOTE | 2024-11-25 10:29 | ESOP_ITS ---
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 Repair of left uterine artery laceration. Indication: Viable IUP 40w5d Active Labor Category 2 Tracing with decreasing variability and late decelerations Pre-Op diagnosis: Viable IUP 40w5d Active Labor Category 2 Tracing with decreasing variability and late decelerations Post-Op diagnosis: Viable IUP 40w5d Active Labor Category 2 Tracing with decreasing variability and late decelerations Left uterine artery laceration Uterine atony. Anesthesia type: General Procedure description: After proper informed consent was obtained and the patient was made aware of the risks, complications, alternatives and benefits of the proposed procedure she was taken to the operating room where she underwent induction of epidural anesthesia. She was prepped and draped in the usual sterile fashion. A timeout was performed.?Patient could feel pain with the forceps so before proceeding with the incision general anesthesia was administered. A Pfannenstiel skin incision was made with the scalpel and carried through to the underlying layer of fascia with the Bovie. The fascia was nicked in the midline incision and the incision was extended bilaterally with the Bovie. The inferior aspect of the fascial incision was grasped with Nasim clamps elevated and the underlying rectus muscle dissected off with the Bovie. The superior aspect the fascial incision was grasped with Nasim clamps elevated and the underlying rectus muscle dissected off with the Bovie. The rectus muscles were in the midline. The peritoneum was grasped between 2 Gauthier clamps and entered sharply with the Metzenbaum scissors. The peritoneum was extended superiorly and inferiorly with good visualization of the bladder. The vesicouterine peritoneum was incised transversely and the bladder flap created digitally. A [place] blade was inserted. A low transverse incision was made in the uterus with a scapel and the incision was extended digitally. The infant's head delivered and the mouth and nose were suctioned with the bulb suction. The shoulder and body delivered atraumatically. The cord was clamped after 30 second delayed cord clamping and the cord was cut.? The infant was handed off to the waiting Pediatric staff, cord blood was collected for lab testing. The placenta was removed complete and intact. The uterus was exteriorized and cleared of all clots and debris. A left uterine artery laceration was noted and was repaired with 1-0 chromic and O- vicryl suture. At the same time uterine atony was noted and the patient received Pitocin, TXA, and Methergine. These measures helped to significantly firm up the uterus. The uterine incision was closed with #1-0 chromic catgut suture in a running interlocking fashion. A second layer of the same suture was used to imbricate the first layer and obtain excellent hemostasis. The vesicouterine peritoneum was closed with 2-0 chromic catgut suture in a running fashion. The firm uterus was returned to the abdomen. The gutters were cleared of all clots and debris. The peritoneum was closed with 0 chromic catgut suture in running fashion. The rectus muscle was closed with 0 chromic catgut suture. The fascia was closed with 0 Vicryl beginning at each angle and ending in the center in a running fashion. The subcutaneous tissue was irrigated with warmed normal saline solution and found to be hemostatic. The subcutaneous tissue was closed with 2-0 chromic catgut suture in a running fashion. The skin was closed with 4-0 Monocryl. A Dermabond Prineo dressing was applied and a sterile pressure dressing was applied.? She tolerated the procedure well. Counts were correct. I discussed with the patient the nature of her condition, intraoperative findings and expectation for recovery all? questions answered. An order for Cytotec 800mcg per rectum was given prior to the patient going to the recovery room. 2 u pRBCs was ordered due to the tachycardia and hypotension with concerns of possible reccurrence of hemorrhage due to uterine atony and goal to keep Hb > 10.0. However at this time the fundus is firm and not heavy or excessive vaginal bleeding is noted. Specimen: none Estimated blood loss (ml): 1,200 Findings: Viable 7 and 9. Cord blood gasses ordered. Clear amniotic fluid Placenta removed complete and infact Uterus, ovaries and tubes grossly within normal limits. Left uterine artery laceration. Uterine atony. Complications: none Surgical staff Andrei WILKINSONA Operation Date: 11/25/24 10:45 <No data on this case meets the specified criteria> Diagnosis Discharge Diagnosis (1) delivery delivered: Status: Acute Problem List Completed Was Problem List Reviewed/Reconciled?: Yes
--- NOTE | 2024-11-25 10:36 | ESPR_ITS ---
Documentation for date of: 11/25/24 OB Labor Progress Note Pain Control Pain control: tolerating well Pelvic Exam Dilation (cm): 5 Effacement (%): 80 station: -2 Amniotic membrane status: Ruptured Contractions Monitor mode: Internal Contraction frequency: 1-3 Contraction duration: 35 Contraction pattern: Coupling Contraction phase: Resting Contraction intensity: Mild Status status: Category ll Comments: prolonged decel x 3 minute and resolved. prior to this, early decels and v ariables. pitocin off and resuscitation measure. amnio infusion started. noted 3 late deceleration. no accels. moderate variability, that progressed to mnimal. OB notified Assessment and Plan Assessment: induction ongoing Plan OB labor note: CNM Management MD Consulted (describe details below): Yes
[2024-11-25] MEDS: METOCLOPRAMIDE INJ 5 MG/ML VIAL 2 ML 10 MG IVP (10:48)
[2024-11-25] MEDS: FAMOTIDINE INJ 10 MG/ML VIAL 2 ML 20 MG IV (10:48)
[2024-11-25] MEDS: ceFAZolin/D5W 2 GM IV 2 GM/100 ML BAG IV (10:48)
--- NOTE | 2024-11-25 13:00 | OBDSUM_ITS ---
Data (Marquez) Data Hx Section: No : 1 Term: 0 : 0 Livin Abortions: Spontaneous & Theraputic: 0 Delivery Data (Marquez) Labor Data Amniotic fluid description: Clear Delivery Data EDC: 11/25/24 EDC calculated by:: LMP/early US confirmation delivery date: 11/25/24 Gestational age (weeks): 40 Gestational age (days): 5 Placenta delivery date: 11/25/24 Delivered by: García Brady Lithograph Press Operator at delivery: Yes Delivery Method Delivery method: Low Transverse Presentation: Vertex position: OP Anesthesia Type Anesthesia Type: Epidural Anesthesia type: General Placenta Placenta delivery description: Manual Removal Placenta Disposition: Sent to Pathology Cord blood sent to lab: Yes cord blood collection: Cord Blood Type, Arterial Cord Blood Gas and Venous Cord Blood Gas EBL Estimated blood loss (ml): 1,200 Additional Procedures Repair of uterine artery laceration. Complications Complications: Uterine atony Uterine artery laceration, left. [place] Data (Marquez) [place] Data [place]'s gender: Male 1 minute: 7 5 minutes: 9 Additional Comments Additional comments: See RN notes for additional information .
[2024-11-25] MEDS: OXYTOCIN in NS 20 units 20 UNIT/1,000 ML BAG 125 UNIT IV ×2 (14:22→22:14)
[2024-11-25 18:30] LABS: Basophils # (Auto) 0.0 Thou/mm3 (0.0-0.2); Basophils % (Auto) 0 % (0-2.5); Eosinophils # (Auto) 0.0 Thou/mm3 (0.0-0.5); Eosinophils % (Auto) 0 % (0-10); Hematocrit 36.4 % (36.0-46.0); Hemoglobin 11.9 g/dL (12.0-16.0); Immature Granulocytes Auto 0.03 Thou/mm3 (0.00-0.00); Lymphocytes # (Auto) 1.7 Thou/mm3 (1.0-4.8); Lymphocytes % (Auto) 14 % (10-50); Mean Corpuscular HGB Conc 32.7 g/dl (31.0-37.0); Mean Corpuscular Hemoglobin 27.2 pg (25.0-35.0); Mean Corpuscular Volume 83 fL (80-100); Monocytes # (Auto) 0.5 Thou/mm3 (0.0-0.8); Monocytes % (Auto) 4 % (0-12); Neutrophils # (Auto) 9.7 Thou/mm3 (1.8-7.7); Neutrophils % (Auto) 81 % (37-80); Nucleated Red Blood Cell # 0.00 Thou/mm3 (0.00-0.00); Nucleated Red Blood Cell % 0 /100 WBC (0); Platelet Count 90 Thou/mm3 (140-440); RDW Standard Deviation 44.4 fL (36.4-46.3); Red Blood Count 4.38 Miln/mm3 (4.00-5.20); White Blood Count 11.9 Thou/mm3 (3.6-11.0)
[2024-11-25] MEDS: IBUPROFEN TAB 400 MG TABLET 800 MG PO (22:24)
[2024-11-26 04:35] VITALS: BP 114/77; PULSE 79; RESP 16; TEMP 36.7; O2SAT 98
[2024-11-26 05:17] LABS: Basophils # (Auto) 0.0 Thou/mm3 (0.0-0.2); Basophils % (Auto) 0 % (0-2.5); Eosinophils # (Auto) 0.0 Thou/mm3 (0.0-0.5); Eosinophils % (Auto) 0 % (0-10); Hematocrit 32.6 % (36.0-46.0); Hemoglobin 10.9 g/dL (12.0-16.0); Immature Granulocytes Auto 0.04 Thou/mm3 (0.00-0.00); Lymphocytes # (Auto) 1.7 Thou/mm3 (1.0-4.8); Lymphocytes % (Auto) 15 % (10-50); Mean Corpuscular HGB Conc 33.4 g/dl (31.0-37.0); Mean Corpuscular Hemoglobin 27.5 pg (25.0-35.0); Mean Corpuscular Volume 82 fL (80-100); Monocytes # (Auto) 0.6 Thou/mm3 (0.0-0.8); Monocytes % (Auto) 5 % (0-12); Neutrophils # (Auto) 8.9 Thou/mm3 (1.8-7.7); Neutrophils % (Auto) 79 % (37-80); Nucleated Red Blood Cell # 0.00 Thou/mm3 (0.00-0.00); Nucleated Red Blood Cell % 0 /100 WBC (0); Platelet Count 93 Thou/mm3 (140-440); RDW Standard Deviation 44.9 fL (36.4-46.3); Red Blood Count 3.97 Miln/mm3 (4.00-5.20); White Blood Count 11.3 Thou/mm3 (3.6-11.0)
[2024-11-26] MEDS: RINGERS LACTATED 1000 ML 1,000 ML 100 ML IV (06:43)
[2024-11-26 07:30] VITALS: BP 118/80; PULSE 86; RESP 16; TEMP 36.5; O2SAT 97
[2024-11-26] MEDS: IBUPROFEN TAB 400 MG TABLET 800 MG PO (07:30)
--- NOTE | 2024-11-26 07:42 | PD.LDPPPRG ---
Subjective Subjective Interval history: Delivery type: Patient doing well this morning. No acute complaints. Ambulating, tolerating p.o. and voiding without difficulty. HTN/Pre-Eclampsia screen: No chest pain, shortness of breath, headache, visual changes, epigastric or right upper quadrant pain. Breast-feeding, lochia diminishing. Bowel: Flatus+/ BM Exam Vital Signs Temp Pulse Resp BP Pulse Ox O2 Del Method O2 Flow Rate 97.7 F 86 16 118/80 97 Room Air 3 11/26/24 07:30 11/26/24 07:30 11/26/24 07:30 11/26/24 07:30 11/26/24 07:30 11/26/24 07:30 11/25/24 14:30 FiO2 100 11/25/24 14:30 Constitutional Constitutional: no acute distress Routine HEENT Exam Head: Present normocephalic and atraumatic Eye: Present EOMI and PERRL ENT: Present mucous membranes moist Routine Neck Exam Neck: Present supple and trachea midline Routine Respiratory Exam Respiratory: Present chest non-tender, lungs clear, normal breath sounds and no resp distress Routine Cardiovascular Exam Cardiovascular: Present RRR Routine Abdominal Exam Abdominal: Present soft and normoactive bowel sounds Routine Extremities Exam Extremities: Present full ROM Routine Skin Exam Skin: Present intact, dry and warm Routine Neurological Exam Neurological: Present alert, oriented X3 and CN II-XII intact Routine Psychiatric Exam Psychiatric: Present normal affect and normal thought process Objective Labs 11/26/24 04:45 Labs: Laboratory Results - last 24 hr 11/24/24 11/25/24 11/26/24 20:05 18:10 04:45 WBC 11.9 H D 11.3 H RBC 4.38 3.97 L Hgb 11.9 L 10.9 L Hct 36.4 32.6 L MCV 83 82 MCH 27.2 27.5 MCHC 32.7 33.4 RDW Std Deviation 44.4 44.9 Plt Count 90 L D 93 L Neut % (Auto) 81 H 79 Lymph % (Auto) 14 15 [place] % (Auto) 4 5 Eos % (Auto) 0 0 Baso % (Auto) 0 0 Neut # (Auto) 9.7 H 8.9 H Lymph # (Auto) 1.7 1.7 [place] # (Auto) 0.5 0.6 Eos # (Auto) 0.0 0.0 Baso # (Auto) 0.0 0.0 Immature Gran # (Auto) 0.03 H 0.04 H Absolute Nucleated RBC 0.00 0.00 Immature Gran % 0 0 Nucleated RBC % 0 0 Blood Type B Positive Antibody Screen NEGATIVE Crossmatch See Detail Blood Bank Wristband ID Yes Assessment & Plan Problem List (1) delivery delivered: Status: Acute Assessment and plan: 1. Continue routine /post-op care 2. Labs reviewed, cbc appropriate 3. Remove dressing/[place]uz[place] 4. Encourage to ambulate, shower 5. Encourage PO intake, breast feeding (2) Injury of left uterine artery: Status: Acute (3) Uterine atony: Status: Acute (4) Blood transfusion during current hospitalization: Status: Acute Time Spent With Patient Time: Total time spent is greater than 50% in coordination of care (as documented) at patient's floor/unit and/or counseling patient:
--- NOTE | 2024-11-26 10:10 | PC.SS ---
TERMINAL GAUGER conducted bedside contact with the patient to address nursing referral indicating patient possessed history of THC use. TERMINAL GAUGER introduced self and role.? At bedside with patient was Darrel SHUKLA. ?Patient gave permission for FOB to be present during discussion.? Patient confirmed past history of THC, patient denies current or future usage. Patient stated she has not used since before she got . Patient reported she had baby boy delivered . Patient and FOB were interacting with infant appropriately. OB services were provided by [facility], infant erp analyst will be at [facility]. Patient is not currently employed, receives WIC and foot stamps. Patient reports she has all baby supplies. Patient stated that this is her first baby and she will be breast feeding baby. Patient denies history of mental health, DV, and CWS. TERMINAL GAUGER provided education on depression and resources for mental health. TERMINAL GAUGER spoke to bedside nurse and informed her at this time SS has no concerns or questions at this time.
[2024-11-26 12:00] VITALS: BP 107/73; PULSE 91; RESP 16; TEMP 36.9; O2SAT 97
[2024-11-26] MEDS: HYDROcodone/APAP 5/325 TABLET 1 TAB PO (15:38)
[2024-11-26 15:50] VITALS: BP 113/77; PULSE 65; RESP 16; TEMP 36.7; O2SAT 100
[2024-11-26 20:28] VITALS: BP 125/80; PULSE 83; RESP 18; TEMP 37.3; O2SAT 98
[2024-11-26] MEDS: HYDROcodone/APAP 5/325 TABLET 2 TAB PO (20:45)
[2024-11-27 03:24] VITALS: BP 123/81; PULSE 86; RESP 16; TEMP 36.7; O2SAT 98
[2024-11-27] MEDS: IBUPROFEN TAB 400 MG TABLET 800 MG PO (07:32)
[2024-11-27 08:00] VITALS: BP 125/82; PULSE 78; RESP 16; TEMP 36.7; O2SAT 98
[2024-11-27] MEDS: DOCUSATE SOD 100 MG CAPSULE PO (09:14)
--- NOTE | 2024-11-27 10:32 | PD.LDPPPRG ---
Subjective Subjective Interval history: Delivery type: Patient doing well this morning. No acute complaints. Ambulating, tolerating p.o. and voiding without difficulty. HTN/Pre-Eclampsia screen: No chest pain, shortness of breath, headache, visual changes, epigastric or right upper quadrant pain. Breast-feeding, lochia diminishing. Bowel: Flatus+/ BM+ Exam Vital Signs Temp Pulse Resp BP Pulse Ox O2 Del Method O2 Flow Rate 98.0 F 78 16 125/82 98 Room Air 3 11/27/24 08:00 11/27/24 08:00 11/27/24 08:00 11/27/24 08:00 11/27/24 08:00 11/27/24 08:00 11/25/24 14:30 FiO2 100 11/25/24 14:30 Constitutional Constitutional: no acute distress Routine HEENT Exam Head: Present normocephalic and atraumatic Eye: Present EOMI and PERRL ENT: Present mucous membranes moist Routine Neck Exam Neck: Present supple and trachea midline Routine Respiratory Exam Respiratory: Present chest non-tender, lungs clear, normal breath sounds and no resp distress Routine Cardiovascular Exam Cardiovascular: Present RRR Routine Abdominal Exam Abdominal: Present soft and normoactive bowel sounds Routine Extremities Exam Extremities: Present full ROM Routine Skin Exam Skin: Present intact, dry and warm Routine Neurological Exam Neurological: Present alert, oriented X3 and CN II-XII intact Routine Psychiatric Exam Psychiatric: Present normal affect and normal thought process Objective Labs 11/26/24 04:45 Assessment & Plan Problem List (1) delivery delivered: Status: Acute (2) Injury of left uterine artery: Status: Acute (3) Uterine atony: Status: Acute (4) Blood transfusion during current hospitalization: Status: Acute Assessment and plan: PPD/POD#2 1. Continue routine care 2. Transition to PO meds. 3. Encourage to ambulate/ breast-feed 4. Anticipate discharge home today. Time Spent With Patient Time: Total time spent is greater than 50% in coordination of care (as documented) at patient's floor/unit and/or counseling patient:
--- NOTE | 2024-11-27 10:33 | ESDS_ITS ---
DS: Providers Provider Date of admission: 11/24/24 20:33 Primary care physician: Physician No Primary/Family Admitting Provider: Emma Frank MD (OB Clinic) Attending Provider on Admission: Santos Dodd MD Consults: 11/25/24 14:11 Referral Routine Comment: Attending Provider on DC: Santos Dodd MD Discharging Provider: Santos Dodd MD DS: Diagnosis Discharge Diagnosis (1) delivery delivered: Status: Acute (2) Blood transfusion during current hospitalization: Status: Acute Problem List Completed Was Problem List Reviewed/Reconciled?: Yes Summary/Hosp Course Brief History: This is a 24-year-old 1 para 0 admit to labor with complaints of leaking fluid since 2 in the afternoon. In early contractions. Patient is been followed at [facility] medical clinic. Her last period February 13, 2024. EDC 11/19/2024. Her first visit was 26 weeks. Patient denies social habits. Denies surgery. Denies chronic illness. Her has been uneventful. Patient is B+, antibody screen negative, RPR nonreactive, rubella, hepatitis B negative, hep C negative, HIV negative, GC and Chlamydia were negative. Patient had negative drug screen. UA was negative. 1 hour was normal. NIPT and carrier screens all negative. GBS is negative Peripartum Data Delivery Method: Low Transverse Episiotomy Description: None Procedures: Procedures Operation Date: 11/25/24 11:15 Actual Procedure Side Surgeon p in OB Not Applicable García Brady MD Time Spent with Patient Time attestation: Total time spent providing and/or coordinating discharge services: Exam Vital Signs Temp Pulse Resp BP Pulse Ox O2 Del Method O2 Flow Rate 98.0 F 78 16 125/82 98 Room Air 3 11/27/24 08:00 11/27/24 08:00 11/27/24 08:00 11/27/24 08:00 11/27/24 08:00 11/27/24 08:00 11/25/24 14:30 FiO2 100 11/25/24 14:30 Discharge Plan Plan Patient Disposition: HOME (Self Care) Patient condition on transfer: Stable Prescriptions/Referrals Prescriptions/Med Rec: New hydrocodone-acetaminophen 5-325 mg Tablet 1 tab PO Q6HR MDD 4 PRN (Reason: Patient rated pain 9 to 10) 5 Days Qty: 20 0RF ibuprofen 400 mg Tablet 800 mg PO Q8HR PRN (Reason: Pain Scale 4-6 (Moderate) 10 Days Qty: 40 0RF docusate sodium 100 mg Capsule 100 mg PO QDAY 30 Days Qty: 30 0RF Continued vit-iron fum-folic ac [ Vitamin with Minerals] 28 mg iron- 800 mcg tablet 1 tab PO QDAY 30 Days Qty: 30 3RF Referrals: Santos Dodd MD [Physician] - No Primary/Family,Physician [Primary Care Provider] - Patient/Caregiver Discharge Instructions Education Materials: After Delivery [place] Concerns, Breast Care After , After a , Nutrition While , Understanding Depression, : Caring for Yourself, C Section Dc, Feel Healthy After Print Language: Georgian Stand Alone Forms: Macie Award Info., Patient Portal Info Letter, DC from Surgery Discharge Order Discharge Orders: Discharge (Routine); Ordered 11/27/24 Ordered By: Santos Dodd Planned Discharge Date 11/27/24
== END 2024-11-27 11:25 | disposition home or self-care (01) | DRG 540 ==
LOC: S4SX 11-25 11:00 → S4NX 11-25 11:11
PROVIDERS: Specialist; Admitting Provider Obstetrics & Gynecology; Visit Provider Obstetrics & Gynecology
PROC: 10D00Z1 Extraction of Products of Conception, Low, Open Approach (ICD-10-PCS; CPT 59514; principal; 2024-11-25 11:00)
DX: O48.0 Post-term pregnancy (principal); Z37.0 Single live birth; Z3A.40 40 weeks gestation of pregnancy; O76 Abnormality in fetal heart rate and rhythm complicating labor and delivery; O62.2 Other uterine inertia; O71.81 Laceration of uterus, not elsewhere classified; O99.891 Other specified diseases and conditions complicating pregnancy; O26.53 Maternal hypotension syndrome, third trimester; R00.0 Tachycardia, unspecified
CPT/HCPCS: 36415; 59025; 76815; 80307; 84112; 85025; 86780; 86850; 86900; 86901; 86920; A4314; A4649; J0290; J0689; J2210; J2250; J2274; J2371; J2590; J2704; J2765; J2795; J3010; J3490; J7050; J7120; P9016; S0191; A9270; J2270

== ENCOUNTER 2024-12-17 14:59 | Outpatient (AMB) | payer MEDICAID, SELFPAY ==
[2024-12-17 15:34] VITALS: BP 110/74; PULSE 84; RESP 16; TEMP 36.5; O2SAT 98; BMI 29.0
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
[2024-12-17 15:38] VITALS: BP 110/74; PULSE 84; RESP 16; TEMP 36.5; O2SAT 98
== END 2024-12-17 15:50 | disposition home or self-care (01) ==
LOC: HODSOBC 14:59
PROVIDERS: Supervising Provider Advanced Practice Midwife; Visit Provider Advanced Practice Midwife
DX: Z39.2 Encounter for routine postpartum follow-up (principal); Z39.1 Encounter for care and examination of lactating mother
CPT/HCPCS: 99213; G0463